=== PATIENT | male | born 1985 | race Caucasian/White ===

== ENCOUNTER 2021-09-14 00:25 | Emergency (ER) | payer SELFPAY ==
[2021-09-14 02:06] LABS: HEMOGLOBIN 14.8 gm/dl (14.0-17.5); RED BLOOD COUNT 4.8 M/UL (4.20-5.50); WHITE BLOOD COUNT 7.6 K/UL (4.5-11.0)
[2021-09-14 02:32] LABS: BUN/CREATININE RATIO 8 (0-10)
== END 2021-09-14 04:48 | disposition home or self-care (01) ==
LOC: ER1 00:25
PROVIDERS: Student in an Organized Health Care Education/Training Program
DX: F41.9 Anxiety disorder, unspecified (principal); F30.9 Manic episode, unspecified; I10 Essential (primary) hypertension
CPT/HCPCS: 70450; 80053; 80307; 81001; 82550; 82553; 82962; 83605; 84439; 84443; 84484; 85025; 99285; G0480